=== PATIENT | female | born 2000 | race Caucasian/White ===

== ENCOUNTER 2020-06-29 08:54 | Emergency (ER) | payer BC ==
[~2020-06-29] VITALS: Ht 160 cm; Wt 54.1 kg
[2020-06-29 09:02] VITALS: TEMP 98.3
[2020-06-29] MEDS ORDERED: [UNRECOGNIZED DRUG - OTHER] PO (09:07)
[2020-06-29 09:53] LABS: COLLECTION METHOD CLEAN CATCH
[2020-06-29 09:56] LABS: BASO % 0.3 % (0.0-2.0); EOS % 0.1 % (0-4.0); GRAN # 7.8 (1.4-6.5); GRAN % 87.6 % (42.2-75.2); HEMOGLOBIN 13.6 g/dl (12.5-16.0); LYMPH # 0.6 (1.2-3.4); LYMPH % 7.2 % (20.0-51.0); MEAN CELL VOLUME 88 fl (80.0-100.0); MEAN CORPUSCULAR HEMOGLOBIN 31 pg (27.0-31.0); MEAN CORPUSCULAR HGB CONC 35 g/dl (33.0-37.0); MEAN PLATELET VOLUME 10.7 fl (7.4-10.4); MONO # 0.4 (0.1-0.6); MONO % 4.5 % (1.7-9.3); PLATELET COUNT 259 K/mm3 (130-400); RED BLOOD COUNT 4.41 M/mm3 (4.10-5.30); REDCELL DISTRIBUTION WIDTH-CV 11.9 % (11.5-14.5)
[2020-06-29 10:08] LABS: MUCOUS Present /lpf; PH 8 (5-8); URINE APPEARANCE Hazy; URINE BACTERIA None Seen /hpf; URINE BILIRUBIN Negative (NEGATIVE); URINE BLOOD Negative (NEGATIVE); URINE COLOR Yellow; URINE GLUCOSE Negative (NEGATIVE); URINE KETONE 2+ (NEGATIVE); URINE LEUKOCYTE ESTERASE Negative (NEGATIVE); URINE NITRATE Negative (NEGATIVE); URINE PROTEIN(semi-quant) 1+ (NEGATIVE); URINE UROBILINOGEN Negative (NEGATIVE)
[2020-06-29 10:09] LABS: ALBUMIN 4.7 gm/dL (3.5-5.0); BILIRUBIN,TOTAL 0.8 mg/dL (0.0-1.0); C-REACTIVE PROTEIN 1.2 mg/dL (0.0-0.9); CALCIUM 9.4 mg/dL (8.4-10.2); CREATININE, serum 0.67 (0.52-1.25); POTASSIUM 4.2 mmol/L (3.4-5.0); TOTAL PROTEIN 8.5 gm/dL (6.4-8.2)
[2020-06-29] MEDS ORDERED: ZOFRAN ODT4 MG PO (10:23)
[2020-06-29 11:52] VITALS: BP 122/69; PULSE 64
== END 2020-06-29 12:00 | disposition home or self-care (01) ==
LOC: COL.ER 08:54
PROVIDERS: Physician Assistant
DX: U07.1 COVID-19 (principal); R10.9 Unspecified abdominal pain; R11.2 Nausea with vomiting, unspecified
CPT/HCPCS: J2405; J7030

== ENCOUNTER 2021-08-06 05:40 | Emergency (ER) | payer BC ==
[~2021-08-06] VITALS: Ht 162.6 cm; Wt 72.7 kg
[~2021-08-06 05:40] MED LIST: ZOFRAN ODT4 MG PO; [UNRECOGNIZED DRUG - OTHER] PO
[2021-08-06 05:45] VITALS: TEMP 97.8
[2021-08-06 06:01] LABS: COLLECTION METHOD CLEAN CATCH
[2021-08-06 06:09] LABS: BASO # 0.1 K/mm3 (0.0-0.2); BASO % 0.8 % (0.0-2.0); EOS # 0.2 K/mm3 (0.0-0.7); EOS % 1.9 % (0-4.0); GRAN # 4.6 K/mm3 (1.4-6.5); GRAN % 50.4 % (42.2-75.2); HEMATOCRIT 37.3 % (37.0-47.0); LYMPH # 3.7 K/mm3 (1.2-3.4); LYMPH % 40.7 % (20.0-51.0); MEAN CELL VOLUME 89 fl (80.0-100.0); MEAN CORPUSCULAR HEMOGLOBIN 31 pg (27.0-31.0); MEAN CORPUSCULAR HGB CONC 35 g/dl (33.0-37.0); MEAN PLATELET VOLUME 10.7 fl (7.4-10.4); MONO # 0.6 K/mm3 (0.1-0.6); MONO % 6.1 % (1.7-9.3); PLATELET COUNT 307 K/mm3 (130-400); RED BLOOD COUNT 4.21 M/mm3 (4.10-5.30); REDCELL DISTRIBUTION WIDTH-CV 11.9 % (11.5-14.5)
[2021-08-06 06:23] LABS: BILIRUBIN,TOTAL 0.4 mg/dL (0.2-1.2); CALCIUM 9.3 mg/dL (8.4-10.2); CREATININE, serum 0.75 mg/dL (0.57-1.11); POTASSIUM 3.9 mmol/L (3.5-4.5); TOTAL PROTEIN 7.3 gm/dL (6.2-8.1)
[2021-08-06 06:47] LABS: MUCOUS Present /lpf; PH 6 (5-8); URINE APPEARANCE Cloudy; URINE BACTERIA Occasional /hpf; URINE BILIRUBIN Negative (NEGATIVE); URINE BLOOD 3+ (NEGATIVE); URINE COLOR Yellow; URINE GLUCOSE Negative (NEGATIVE); URINE KETONE Negative (NEGATIVE); URINE LEUKOCYTE ESTERASE 3+ (NEGATIVE); URINE NITRATE Negative (NEGATIVE); URINE PROTEIN(semi-quant) 2+ (NEGATIVE); URINE RBC >50 /hpf; URINE UROBILINOGEN Negative (NEGATIVE)
[2021-08-06 07:23] VITALS: BP 115/81; PULSE 74
[2021-08-10] MEDS ORDERED: CEPHALEXIN500 M1 PO (19:31)
== END 2021-08-06 07:27 | disposition home or self-care (01) ==
LOC: COL.ER 05:40
PROVIDERS: Emergency Medicine Emergency Medical Services
DX: N94.6 Dysmenorrhea, unspecified (principal)
CPT/HCPCS: J1885